=== PATIENT | female | born 1990 | race Caucasian/White ===

== ENCOUNTER 2021-04-25 11:48 | Emergency (ER) | payer OTHER ==
[2021-04-25 12:00] VITALS: TEMP 97.7
[2021-04-25] MEDS ORDERED: LORazepam 2 MG/ML INJ IV STA ×2 (12:07→13:21)
[2021-04-25] MEDS ORDERED: ONDANSETRON 4 MG/2 ML VIAL IVP STA (12:09)
--- NOTE | 2021-04-25 12:15 | ED ---
General Adult HPI - General Source: patient, RN notes reviewed Mode of arrival: wheelchair Limitations: physical limitation <Dwayne Sorto - Last Filed: 04/25/21 16:59> <Sade Miramontes - Last Filed: 04/26/21 23:46> - General Chief complaint: Psychiatric Symptoms Stated complaint: Panic Attack Time Seen by Provider: 04/25/21 11:58 - History of Present Illness Initial comments: 30-year-old female presents to the emergency room for chief complaint of "panic attack." Patient reports she started to have a panic attack around 6:00 this morning. Patient states she has had these several times in the past but they usually last an hour or so. States every time she comes down her panic attack returns. Patient states she is nauseous and is vomiting. Patient's family members also agrees patient has had these several times in the past. He reports she was drinking last night but he did not think she was drinking a lot. He reports that this morning she started to get emotional and that's when she started to have the pack attacks again. Patient reports that she feels short of breath and like her hands and feet are numb. Denies chest pain. Patient has no other complaints at this time including chest pain, abdominal pain, headache, or visual changes. (Dwayne Sorto) - Related Data Home Medications Medication Instructions Recorded Confirmed FLUoxetine HCL [PROzac] 20 mg PO HS 04/25/21 04/25/21 Norethindrone [Ortho Micronor] 0.35 mg PO HS 04/25/21 04/25/21 lamoTRIgine [LaMICtal] 25 mg PO HS 04/25/21 04/25/21 Previous Rx's Medication Instructions Recorded LORazepam [Ativan] 1 mg PO DAILY PRN 3 Days #3 tab 04/25/21 Allergies Allergy/AdvReac Type Severity Reaction Status Date / Time No Known Allergies Allergy Verified 04/25/21 13:59 Review of Systems ROS Other: All systems not noted in ROS Statement are negative. <Dwayne Sorto - Last Filed: 04/25/21 16:59> ROS Other: All systems not noted in ROS Statement are negative. <Sade Miramontes - Last Filed: 04/26/21 23:46> ROS Statement: Those systems with pertinent positive or pertinent negative responses have been documented in the HPI. Past Medical History Past Medical History: No Reported History History of Any Multi-Drug Resistant Organisms: None Reported Past Surgical History: Section Past Psychological History: Anxiety, Bipolar, Depression Smoking Status: Current every day smoker Past Alcohol Use History: Occasional Past Drug Use History: Marijuana <Dwayne Sorto P - Last Filed: 04/25/21 16:59> General Exam Limitations: physical limitation General appearance: alert, anxious Head exam: Present: atraumatic, normocephalic, normal inspection Eye exam: Present: normal appearance, PERRL, EOMI. Absent: scleral icterus, conjunctival injection, periorbital swelling ENT exam: Present: normal exam, normal oropharynx, mucous membranes moist, normal external ear exam Neck exam: Present: normal inspection, full ROM. Absent: tenderness, meningismus, lymphadenopathy Respiratory exam: Present: normal lung sounds bilaterally. Absent: respiratory distress, wheezes, rales, rhonchi, stridor Cardiovascular Exam: Present: regular rate, normal rhythm, normal heart sounds. Absent: systolic murmur, diastolic murmur, rubs, gallop, clicks GI/Abdominal exam: Present: soft, normal bowel sounds. Absent: distended, t enderness, guarding, rebound, rigid Skin exam: Present: diaphoretic <Dwayne Sorto P - Last Filed: 04/25/21 16:59> Course Vital Signs 04/25/21 04/25/21 04/25/21 11:50 12:34 13:28 Temperature 97.7 F Pulse Rate 90 56 L 58 L Respiratory 34 H 20 18 Rate Blood Pressure 134/75 102/52 O2 Sat by Pulse 100 100 100 Oximetry 04/25/21 16:37 Temperature Pulse Rate 80 Respiratory 18 Rate Blood Pressure 118/67 O2 Sat by Pulse 100 Oximetry EKG Findings - EKG Comments: EKG Findings:: Sinus bradycardia, ventricular rate 56, MA interval 114, QTc 490 <Dwayne Sorto P - Last Filed: 04/25/21 16:59> Medical Decision Making - Lab Data Result diagrams: 04/25/21 12:22 04/25/21 12:22 <Dwayne Sorto P - Last Filed: 04/25/21 16:59> - Lab Data Result diagrams: 04/25/21 12:22 04/25/21 12:22 <Sade Miramontes - Last Filed: 04/26/21 23:46> - Medical Decision Making Vitals are stable. Patient is well-appearing. Laboratory evaluation was obtained. Patient does have leukocytosis likely secondary to vomiting. CMP does show low CO2 likely related to hyperventilation. Chest x-ray shows a normal chest. Patient was given fluids, Ativan, and antinausea medication. She started to feel better. I did offer patient to see psychiatry nurse however she declines at this time. She denies suicidal or homicidal thoughts. Patient reports she has seen a psychiatrist outpatient and will follow-up. She is to return here for any worsening symptoms. (Dwayne Sorto) I was available for consultation in the emergency department. The history and physical exam were done by the midlevel provider. I was consulted for this patients care. I reviewed the case with the midlevel provider and based on their presentation of the patient, I agree with the assessment, medical decision making and plan of care as documented. Chart was dictated using [employer] dictation software. Attempts were made to correct any dictation errors however some typographical errors may persist. (Sade Miramontes) - Lab Data Lab Results 04/25/21 04/25/21 Range/Units 12:22 12:22 WBC 17.1 H (3.8-10.6) k/uL RBC 4.73 (3.80-5.40) m/uL Hgb 14.7 (11.4-16.0) gm/dL Hct 44.2 (34.0-46.0) % MCV 93.6 (80.0-100.0) fL MCH 31.1 (25.0-35.0) pg MCHC 33.2 (31.0-37.0) g/dL RDW 13.2 (11.5-15.5) % Plt Count 369 (150-450) k/uL MPV 7.4 Neutrophils % 77 % Lymphocytes % 17 % Monocytes % 4 % Eosinophils % 0 % Basophils % 1 % Neutrophils # 13.1 H (1.3-7.7) k/uL Lymphocytes # 2.9 (1.0-4.8) k/uL Monocytes # 0.7 (0-1.0) k/uL Eosinophils # 0.1 (0-0.7) k/uL Basophils # 0.1 (0-0.2) k/uL Sodium 139 (137-145) mmol/L Potassium 3.7 (3.5-5.1) mmol/L Chloride 107 (98-107) mmol/L Carbon Dioxide 14 L (22-30) mmol/L Anion Gap 18 mmol/L BUN 9 (7-17) mg/dL Creatinine 0.57 (0.52-1.04) mg/dL Est GFR (CKD-EPI)AfAm >90 (>60 ml/min/1.73 sqM) Est GFR (CKD-EPI)NonAf >90 (>60 ml/min/1.73 sqM) Glucose 206 H (74-99) mg/dL Calcium 10.3 H (8.4-10.2) mg/dL Magnesium 1.6 (1.6-2.3) mg/dL Total Bilirubin 0.8 (0.2-1.3) mg/dL AST 27 (14-36) U/L ALT 23 (4-34) U/L Alkaline Phosphatase 89 (38-126) U/L Total Protein 7.4 (6.3-8.2) g/dL Albumin 4.9 (3.5-5.0) g/dL Serum Alcohol <10 mg/dL Disposition Is patient prescribed a controlled substance at d/c from ED?: No Time of Disposition: 16:51 <Dwayne Sorto P - Last Filed: 04/25/21 16:59> <Sade Miramontes A - Last Filed: 04/26/21 23:46> Clinical Impression: Acute anxiety Disposition: HOME SELF-CARE Condition: Good Instructions (If sedation given, give patient instructions): Anxiety (ED) Additional Instructions: Take Ativan as needed. Do not drive while taking Ativan. Please follow up with primary care. Return to the emergency room for any worsening symptoms. Prescriptions: LORazepam [Ativan] 1 mg PO DAILY PRN 3 Days #3 tab PRN Reason: Anxiety Referrals: Srikanth Harrison MD [REFERRING] - 1-2 days
[2021-04-25 12:50] LABS: Basophils # (A) 0.1 k/uL (0-0.2); Basophils % (A) 1 %; Eosinophils # (A) 0.1 k/uL (0-0.7); Eosinophils % (A) 0 %; HCT 44.2 % (34.0-46.0); HGB 14.7 gm/dL (11.4-16.0); Lymphocytes # (A) 2.9 k/uL (1.0-4.8); Lymphocytes % (A) 17 %; MCH 31.1 pg (25.0-35.0); MCHC 33.2 g/dL (31.0-37.0); MCV 93.6 fL (80.0-100.0); Mean Platelet Volume 7.4; Monocytes # (A) 0.7 k/uL (0-1.0); Monocytes % (A) 4 %; Neutrophils # (A) 13.1 k/uL (1.3-7.7); Neutrophils % (A) 77 %; Platelet Count 369 k/uL (150-450); RBC 4.73 m/uL (3.80-5.40); RDW 13.2 % (11.5-15.5); WBC 17.1 k/uL (3.8-10.6)
[2021-04-25 12:58] LABS: AST 27 U/L (14-36); African American GFR (CKD) >90 (>60 ml/min/1.73 sqM); Albumin 4.9 g/dL (3.5-5.0); Alcohol <10 mg/dL; Alkaline Phosphatase 89 U/L (38-126); Anion Gap 18 mmol/L; Blood Urea Nitrogen 9 mg/dL (7-17); Calcium 10.3 mg/dL (8.4-10.2); Carbon Dioxide 14 mmol/L (22-30); Chloride 107 mmol/L (98-107); Glucose 206 mg/dL (74-99); Magnesium 1.6 mg/dL (1.6-2.3); Non-African American GFR(CKD) >90 (>60 ml/min/1.73 sqM); Potassium 3.7 mmol/L (3.5-5.1); Sodium 139 mmol/L (137-145); Total Bilirubin 0.8 mg/dL (0.2-1.3); Total Protein 7.4 g/dL (6.3-8.2)
[2021-04-25 13:19] LABS: ALT 23 U/L (4-34)
[2021-04-25 13:28] VITALS: RESP 18
--- NOTE | 2021-04-25 15:02 | XR ---
EXAMINATION TYPE: XR chest 2V DATE OF EXAM: 04/25/2021 COMPARISON: NONE HISTORY: Short of breath TECHNIQUE: FINDINGS: Heart and mediastinum are normal. Lungs are clear. Diaphragm is normal. Bony thorax appears normal. IMPRESSION: Normal chest. Normal heart.
[2021-04-25] MEDS ORDERED: diphenhydrAMINE 50 MG/ML 1 ML VIAL IVP STA (15:58)
[2021-04-25] MEDS ORDERED: SODIUM CHLORIDE 0.9% 1,000 ML IV STA (15:58)
[2021-04-25] MEDS ORDERED: METOCLOPRAMIDE 5 MG/ML 2 ML VIAL IVP STA (15:58)
[2021-04-25 16:38] VITALS: BP 118/67; PULSE 80
== END 2021-04-25 17:14 | disposition home or self-care (01) ==
LOC: EC 11:48
DX: F41.9 Anxiety disorder, unspecified (principal); D72.829 Elevated white blood cell count, unspecified; F17.200 Nicotine dependence, unspecified, uncomplicated
CPT/HCPCS: 36415; 93005; 80053; 83735; 85025; 71046; 99285; 96374; 96375; 96376; 96361; G0480; J2060; J1200; J2765; J2405; 80320

== ENCOUNTER 2021-07-05 18:15 | Inpatient (IN) | payer MEDICAID, OTHER ==
--- NOTE | 2021-07-05 19:54 | ED ---
Psych HPI - General Chief Complaint: Psychiatric Symptoms Stated Complaint: EPS eval Time Seen by Provider: 07/05/21 18:28 Source: patient Mode of arrival: ambulatory - History of Present Illness Initial Comments: Patient presents with psychiatric disorder. She has thoughts of harming herself. She did not overdose or try to harm her self today. He has no chest or belly or back pain. She has no nausea or vomiting. She has no weakness. She has no lightheadedness. - Related Data Home Medications Medication Instructions Recorded Confirmed FLUoxetine HCL [PROzac] 20 mg PO HS 04/25/21 04/25/21 Norethindrone [Ortho Micronor] 0.35 mg PO HS 04/25/21 04/25/21 lamoTRIgine [LaMICtal] 25 mg PO HS 04/25/21 04/25/21 Previous Rx's Medication Instructions Recorded LORazepam [Ativan] 1 mg PO DAILY PRN 3 Days #3 tab 04/25/21 Allergies Allergy/AdvReac Type Severity Reaction Status Date / Time No Known Allergies Allergy Verified 07/05/21 18:27 Review of Systems ROS Statement: Those systems with pertinent positive or pertinent negative responses have been documented in the HPI. ROS Other: All systems not noted in ROS Statement are negative. Past Medical History Past Medical History: No Reported History History of Any Multi-Drug Resistant Organisms: None Reported Past Surgical History: Section Past Psychological History: Anxiety, Bipolar, Depression Smoking Status: Current every day smoker Past Alcohol Use History: Occasional Past Drug Use History: Marijuana General Exam Limitations: no limitations General appearance: alert, in no apparent distress Head exam: Present: atraumatic, normocephalic, normal inspection Eye exam: Present: normal appearance, PERRL, EOMI. Absent: scleral icterus, conjunctival injection, periorbital swelling ENT exam: Present: normal exam, mucous membranes moist Neck exam: Present: normal inspection. Absent: tenderness, meningismus, lymphadenopathy Respiratory exam: Present: normal lung sounds bilaterally. Absent: respiratory distress, wheezes, rales, rhonchi, stridor Cardiovascular Exam: Present: regular rate, normal rhythm, normal heart sounds. Absent: systolic murmur, diastolic murmur, rubs, gallop, clicks GI/Abdominal exam: Present: soft, normal bowel sounds. Absent: distended, tenderness, guarding, rebound, rigid Extremities exam: Present: normal inspection, full ROM, normal capillary refill. Absent: tenderness, pedal edema, joint swelling, calf tenderness Back exam: Present: normal inspection Neurological exam: Present: alert, oriented X3, CN II-XII intact Psychiatric exam: Present: depressed Skin exam: Present: warm, dry, intact, normal color. Absent: rash Course Vital Signs 07/05/21 18:23 Temperature 98.1 F Pulse Rate 102 H Respiratory 18 Rate Blood Pressure 110/79 O2 Sat by Pulse 98 Oximetry Medical Decision Making - Medical Decision Making Patient was a valid by psychiatry. She will be admitted to their service. Disposition Clinical Impression: Depression Disposition: TRANSFER TO PSYCH HOSP/UNIT Condition: Fair Referrals: Holly Patel MD [Primary Care Provider] - 1-2 days
[2021-07-05] MEDS ORDERED: ACETAMINOPHEN TAB 325 MG TAB PO PRN (20:43)
[2021-07-05] MEDS ORDERED: MAGNESIUM HYDROXIDE 2,400 MG/10 ML CUP PO PRN (20:43)
[2021-07-05] MEDS ORDERED: MAG HYDROX/AL HYDROX/SIMETH 30 ML CUP PO PRN (20:43)
[2021-07-05] MEDS ORDERED: HALOPERIDOL LACTATE 5 MG/ML 1 ML VIAL IM PRN (20:49)
[2021-07-05] MEDS ORDERED: LORazepam 2 MG/ML INJ IM PRN (20:49)
[2021-07-05] MEDS: LORazepam 1 MG TAB PO PRN (21:16)
[2021-07-05 21:52] VITALS: RESP 16
--- NOTE | 2021-07-06 03:17 | P.PN ---
Progress Note - Text Progress Note Date: 07/06/21 Patient sedated and could not be evaluated.
[2021-07-06] MEDS ORDERED: NICOTINE 14MG/24HR PATCH TRANSDERM SCH (09:00)
[2021-07-06 10:23] LABS: Basophils % (A) 0 %; Eosinophils # (A) 0.1 k/uL (0-0.7); Eosinophils % (A) 1 %; HCT 44.6 % (34.0-46.0); HGB 14.4 gm/dL (11.4-16.0); Lymphocytes # (A) 1.8 k/uL (1.0-4.8); Lymphocytes % (A) 16 %; MCH 31.6 pg (25.0-35.0); MCHC 32.3 g/dL (31.0-37.0); MCV 97.8 fL (80.0-100.0); Mean Platelet Volume 6.9; Monocytes # (A) 0.4 k/uL (0-1.0); Monocytes % (A) 4 %; Neutrophils % (A) 79 %; Platelet Count 322 k/uL (150-450); RBC 4.56 m/uL (3.80-5.40); RDW 12.1 % (11.5-15.5); WBC 11.4 k/uL (3.8-10.6)
[2021-07-06 10:32] LABS: ALT 19 U/L (4-34); AST 28 U/L (14-36); African American GFR (CKD) >90 (>60 ml/min/1.73 sqM); Albumin 4.5 g/dL (3.5-5.0); Alkaline Phosphatase 80 U/L (38-126); Anion Gap 11 mmol/L; Blood Urea Nitrogen 14 mg/dL (7-17); Carbon Dioxide 25 mmol/L (22-30); Chloride 103 mmol/L (98-107); Glucose 106 mg/dL (74-99); Non-African American GFR(CKD) >90 (>60 ml/min/1.73 sqM); Potassium 3.7 mmol/L (3.5-5.1); Sodium 139 mmol/L (137-145); Total Bilirubin 0.7 mg/dL (0.2-1.3); Total Protein 7.3 g/dL (6.3-8.2)
[2021-07-06] MEDS: LORazepam 1 MG TAB PO PRN (11:06)
[2021-07-06] MEDS: VENLAFAXINE HCL ER 37.5 MG CAP PO SCH (12:25)
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
[2021-07-06 17:05] LABS: Hemoglobin A1C 4.9 % (4.0-6.0)
--- NOTE | 2021-07-06 18:12 | P.CONS ---
History of Present Illness - Reason for Consult Consult date: 07/06/21 Medical management Requesting physician: Prakash Dick - Chief Complaint Depressed - History of Present Illness Consultation: This is a 31-year-old patient follows with Dr. Patel. Patient with having progressive symptoms of anxiety depression. She got into a argument with her boyfriend is started crying. She took a knife to her throat but then decided against the same. She has not been eating well and poor sleep. Patient does smoke marijuana and smokes cigarettes. 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 She therefore decided to present here. He sees patient has been anxious depressed for quite some time. Patient also c omplaining of a runny nose,itchy throat some wheezing and a cough. Patient denies any fever and chills. Review of systems: GEN.: None EYES: None HEENT: As above] NECK: None RESPIRATORY: As above CARDIOVASCULAR: None GASTROINTESTINAL: None GENITOURINARY: None MUSCULOSKELETAL: None LYMPHATICS: None HEMATOLOGICAL: None PSYCHIATRY: As above NEUROLOGICAL: Not sleeping well Past medical history to include: Anxiety depression Social history: Lives with her boyfriend and daughter. Smokes anywhere from a 1 g to quarter ounce of marijuana daily. Smokes 1 packet cigarettes a day since age of 14. 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 Family history: Reviewed, noncontributory to presentation Physical examination: VITAL SIGNS:, 98.1, 82, 16, 118/68, 97% on room air GENERAL: BMI 23.6, sitting up in a chair, awake, slightly anxious. EYES: Pupils equal. Conjunctiva normal. HEENT: External appearance of nose and ears normal, oral cavity grossly normal. NECK: JVD not raised; masses not palpable. HEART: First and second heart sounds are normal; no edema. LUNGS: Respiratory rate normal; decreased breath sounds or wheezing. ABDOMEN: Soft, nontender, liver spleen not palpable, no masses palpable. PSYCH: Alert and oriented x3; mood and affect normal. NEUROLOGICAL: Cranial nerves grossly intact; no facial asymmetry, power and sensation grossly intact. LYMPHATICS: No lymph nodes palpable in the axilla and neck INVESTIGATIONS, reviewed in the clinical context: White count 11.4 hemoglobin 14.4 platelets 322 potassium 3.7 crit 0.67 TSH 0.921 Assessment and plan: -Acute viral bronchitis with secondary bronchospasm Claritin 5 mg twice a day for 4 doses and albuterol 2 puffs 4 times a day -Chronic nicotine dependence, cigarette smoker Patient was counseled. Nicotine patch 21 g -Chronic marijuana use, recreational Advised against the same -Chronic insomnia from anxiety depression Patient be started on trazodone -Major depressive disorder recurrent, severe and anxiety disorder Follow-up with psychiatry Care was discussed with the patient. To follow-up with her family doctor upon discharge. Medication changes as above. Thank you Dr. Dick Past Medical History Past Medical History: No Reported History History of Any Multi-Drug Resistant Organisms: None Reported Past Surgical History: Section Smoking Status: Current every day smoker Medications and Allergies Home Medications Medication Instructions Recorded Confirmed Type FLUoxetine HCL [PROzac] 20 mg PO HS 04/25/21 04/25/21 History LORazepam [Ativan] 1 mg PO DAILY PRN 3 Days #3 tab 04/25/21 Rx Norethindrone [Ortho Micronor] 0.35 mg PO HS 04/25/21 04/25/21 History lamoTRIgine [LaMICtal] 25 mg PO HS 04/25/21 04/25/21 History Allergies Allergy/AdvReac Type Severity Reaction Status Date / Time No Known Allergies Allergy Verified 07/05/21 18:27 Physical Exam Vitals: Vital Signs Temp Pulse Pulse Resp BP BP Pulse Ox 07/05/21 21:49 98.1 F 82 16 118/68 97 07/05/21 18:23 98.1 F 102 H 18 110/79 98 Intake and Output 07/05/21 07/06/21 07/06/21 22:59 06:59 14:59 Other: Weight 60.441 kg Results CBC & Chem 7: 07/06/21 09:33 07/06/21 09:33
[2021-07-06] MEDS: NICOTINE 21MG/24HR PATCH TRANSDERM SCH (18:14)
[2021-07-06 18:59] LABS: Chol/HDL Ratio 2.93; Cholesterol 158 mg/dL (0-200); LDL Cholesterol,Calculated 87.6 mg/dL (0.0-131.0)
[2021-07-06] MEDS: traZODone HCL 50 MG TAB PO SCH (20:10)
[2021-07-06] MEDS: LORATADINE 10 MG TAB PO SCH (20:10)
[2021-07-06] MEDS: ALBUTEROL HFA INHALER INHALATION SCH (20:12)
[2021-07-07 06:52] VITALS: BP 113/66; PULSE 85; TEMP 97.6
[2021-07-07] MEDS: LORATADINE 10 MG TAB PO SCH ×2 (08:20→22:14)
[2021-07-07] MEDS: ALBUTEROL HFA INHALER INHALATION SCH ×4 (08:20→22:15)
[2021-07-07] MEDS: VENLAFAXINE HCL ER 37.5 MG CAP PO SCH (08:20)
[2021-07-07] MEDS: NICOTINE 21MG/24HR PATCH TRANSDERM SCH (08:21)
--- NOTE | 2021-07-07 09:20 | P.PN ---
Progress Note - Text Progress Note Date: 07/07/21 Interval History: Patient was seen wandering the hallways and was directable and agreeable to sp jessica with aligner typewriter in the office. Patient appears to be mildly less tearful today and have an improvement in her affect. She states that she is not feeling suicidal today and states that she feels that it was "childish" she was feeling that way yesterday and was tearful. She states that she had a difficult time sleeping due to another patient running in the hallways and yelling. She states that she feels the trazodone has been helping though and wants to remain on the same dose. She claims that she feels the Effexor has been helping her and wants to have that increased. She claims that she is going to groups and attempting to participate as best that she can. At this time patient denies any suicidal or homical ideations, intent or plan. Patient denies any auditory, visual hallucinations and denies any paranoia or delusions. Patient denies any side effects from the medications and has been compliant with meds. Mental Status Exam: General Appearance: Patient appears to be short in stature, stated age is alert, directable, and attempts to cooperate. Patient appears to have improving hygiene and grooming. Behavior: Patient is seated without any agitated behavior. Speech: Patient's speech is fluent and nonpressured. Soft tone Mood/Affect: Patient reports their mood is improving mildly, affect is congruent Suicidality/Homicidality: Patient denies having any homicidal ideation intent or plan. She claims that she is having no suicidal thoughts today, no intent or plan. Perceptions: Patient denies any visual hallucinations and denies any auditory hallucinations Though content/process: Logical. Focused on her stressors and her symptoms. Memory and concentration: AOX3, grossly intact for the purposes of this session. Judgment and insight: Improving Assessment Major depressive disorder, recurrent, severe Anxiety disorder unspecified, rule out panic disorder versus generalized anxiety disorder Cannabis use disorder Nicotine dependence Plan: -Patient continues to meet criteria for inpatient psychiatric admission for symptom stabilization and safety. Patient has signed adult voluntary form and medication consent and was placed in patient's chart. -Medications: Increased Effexor to 75 mg daily for mood/anxiety. Continue trazodone 50 mg daily at bedtime for insomnia/mood. -When necessary Ativan and Haldol for agitation/aggression. -NRT - nicotine patch -SW on board for discharge planning. Encouraged the patient to participate in milieu. likely discharge tomorrow if patient continues to improve.
[2021-07-07] MEDS: traZODone HCL 50 MG TAB PO SCH (22:14)
[2021-07-07] MEDS: LORazepam 1 MG TAB PO PRN (23:07)
[2021-07-08] MEDS: NICOTINE 21MG/24HR PATCH TRANSDERM SCH (08:40)
[2021-07-08] MEDS: LORATADINE 10 MG TAB PO SCH (08:40)
[2021-07-08] MEDS: ALBUTEROL HFA INHALER INHALATION SCH ×3 (08:40→15:51)
[2021-07-08] MEDS ORDERED: VENLAFAXINE HCL ER 75 MG CAP PO SCH (09:00)
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
== END 2021-07-08 19:58 | disposition home or self-care (01) | DRG 885 ==
LOC: EC 18:15 → 3MHU 20:41
PROVIDERS: ADMIT Psychiatry & Neurology Psychiatry; ATTEND Psychiatry & Neurology Psychiatry
DX: F33.2 Major depressive disorder, recurrent severe without psychotic features (principal); R45.851 Suicidal ideations; F12.10 Cannabis abuse, uncomplicated; F17.210 Nicotine dependence, cigarettes, uncomplicated; F41.0 Panic disorder [episodic paroxysmal anxiety]; F41.8 Other specified anxiety disorders; F51.04 Psychophysiologic insomnia; F51.05 Insomnia due to other mental disorder; J20.9 Acute bronchitis, unspecified; Z79.899 Other long term (current) drug therapy; Z81.1 Family history of alcohol abuse and dependence
CPT/HCPCS: 80053; 80061; 82075; 83036; 84443; 85025; 99285

== ENCOUNTER 2021-08-22 03:55 | Inpatient (IN) | payer MEDICAID, OTHER ==
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
[2021-08-22 06:43] LABS: Basophils % (A) 1 %; Eosinophils # (A) 0.1 k/uL (0-0.7); Eosinophils % (A) 1 %; HCT 40.2 % (34.0-46.0); HGB 13.2 gm/dL (11.4-16.0); Lymphocytes # (A) 1.9 k/uL (1.0-4.8); Lymphocytes % (A) 31 %; MCH 31.9 pg (25.0-35.0); MCHC 32.8 g/dL (31.0-37.0); MCV 97.1 fL (80.0-100.0); Mean Platelet Volume 7.1; Monocytes # (A) 0.4 k/uL (0-1.0); Monocytes % (A) 6 %; Neutrophils # (A) 3.8 k/uL (1.3-7.7); Neutrophils % (A) 60 %; Platelet Count 248 k/uL (150-450); RBC 4.14 m/uL (3.80-5.40); RDW 11.9 % (11.5-15.5); WBC 6.4 k/uL (3.8-10.6)
[2021-08-22 06:59] LABS: Appearance,Urine Clear (Clear); Bilirubin,Urine Negative (Negative); Blood,Urine Negative (Negative); Color,Urine Colorless; Glucose,Urine (UA) Negative (Negative); Ketones,Urine Negative (Negative); Leukocyte Esterase,Urine Negative (Negative); Nitrite,Urine Negative (Negative); PH, Urine 5.5 (5.0-8.0); Protein,Urine Negative (Negative); Specific Gravity,Urine 1.003 (1.001-1.035); Urobilinogen,Urine <2.0 mg/dL (<2.0)
[2021-08-22] MEDS ORDERED: MAGNESIUM HYDROXIDE 2,400 MG/10 ML CUP PO PRN (07:05)
[2021-08-22] MEDS ORDERED: MAG HYDROX/AL HYDROX/SIMETH 30 ML CUP PO PRN (07:05)
[2021-08-22] MEDS ORDERED: ACETAMINOPHEN TAB 325 MG TAB PO PRN (07:05)
[2021-08-22] MEDS ORDERED: LORazepam 1 MG TAB PO PRN (07:05)
[2021-08-22 07:12] LABS: Acetaminophen <10.0 ug/mL; African American GFR (CKD) >90 (>60 ml/min/1.73 sqM); Anion Gap 5 mmol/L; Blood Urea Nitrogen 8 mg/dL (7-17); Carbon Dioxide 25 mmol/L (22-30); Chloride 110 mmol/L (98-107); Glucose 127 mg/dL (74-99); Non-African American GFR(CKD) >90 (>60 ml/min/1.73 sqM); Potassium 4.3 mmol/L (3.5-5.1); Salicylate <1.0 mg/dL; Sodium 140 mmol/L (137-145)
[2021-08-22 07:38] LABS: Amphetamine Screen,Urine Detected (NotDetected); Barbiturate Screen,Urine Not Detected (NotDetected); Benzodiazepines Screen,Urine Not Detected (NotDetected); Cocaine Screen,Urine Not Detected (NotDetected); Methadone Screen, Urine Not Detected (NotDetected); Opiate Screen,Urine Not Detected (NotDetected); Oxycodone Screen, Urine Not Detected (NotDetected); Phencyclidine Screen,Urine Not Detected (NotDetected); Tricyclic Antidepressant,Urine Not Detected (NotDetected); Urn Cannabinoid Scrn Detected (NotDetected)
[2021-08-22] MEDS ORDERED: ALBUTEROL INHALER 60 PUFF/8 GM INHALER (MHU) INHALATION SCH (08:00)
[2021-08-22] MEDS: NICOTINE 14MG/24HR PATCH TRANSDERM SCH (10:02)
[2021-08-22] MEDS: LORATADINE 10 MG TAB PO SCH ×2 (10:02→20:33)
[2021-08-22] MEDS ORDERED: ALBUTEROL INHALER 60 PUFF/8 GM INHALER (MHU) INHALATION PRN (10:41)
[2021-08-22] MEDS: OLANZapine 5 MG TAB PO SCH ×3 (14:08→20:34)
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
--- NOTE | 2021-08-22 14:27 | P.CONS ---
History of Present Illness - Reason for Consult Consult date: 08/22/21 Medical management Requesting physician: Karl Llanos - Chief Complaint Very emotional - History of Present Illness Consultation: This is a 31-year-old patient follows with Dr. Patel. Patient was here in the hospital from August 04 through August 07. Diagnosed with major depressive disorder without psychotic symptoms. Patient does use marijuana and smoking cigarettes. Patient became into the ER when she was very emotionally distraught. She tried to jump out of for [employer] car. She was reportedly shouting and yelling in the ER. Feeling depressed and suicidal. Since the presentation in July patient is being through 2 jobs. Cannot deal with the people in the [employer] day. She was to apply for disability. Patient been having trouble sleeping. Appetite is fair. More contained during the interview. Review of systems: GEN.: None EYES: None HEENT: None NECK: None RESPIRATORY: None CARDIOVASCULAR: None GASTROINTESTINAL: None GENITOURINARY: None MUSCULOSKELETAL: None LYMPHATICS: None HEMATOLOGICAL: None PSYCHIATRY: As above NEUROLOGICAL: Not sleeping well Past medical history to include: Major depressive disorder. Anxiety disorder. Nicotine and marijuana use. Social history: Lives with her boyfriend and daughter. Smokes anywhere from a 1 g to quarter ounce of marijuana daily. Smokes 1 packet cigarettes a day since age of 14. Currently not employed. Family history: Reviewed, noncontributory to presentation Physical examination: VITAL SIGNS:, 97.9, 92, 18, 111/62, 99% room air GENERAL: BMI 24.3, sitting up in a chair, appears slightly anxious. EYES: Pupils equal. Conjunctiva normal. HEENT: External appearance of nose and ears normal, oral cavity grossly normal. NECK: JVD not raised; masses not palpable. HEART: First and second heart sounds are normal; no edema. LUNGS: Respiratory rate normal; decreased breath sounds or wheezing. ABDOMEN: Soft, nontender, liver spleen not palpable, no masses palpable. PSYCH: Alert and oriented x3; mood and affect anxious. NEUROLOGICAL: Cranial nerves grossly intact; no facial asymmetry, power and sensation grossly intact. LYMPHATICS: No lymph nodes palpable in the axilla and neck INVESTIGATIONS, reviewed in the clinical context: White count 6.4 hemoglobin 13.2 platelets 248 potassium 4.3 creatinine 0.5 to UA: Negative Units she quantitative: Not detected Urine drug screen positive for amphetamines, marijuana Coronavirus [PCR]: Not detected Assessment and plan: -Major depressive disorder with acute flareup. Without psychotic symptoms Follow with psychiatry -Chronic nicotine dependence, cigarette smoker counseled. Nicotine patch 21 g -Chronic marijuana use, recreational Advised against the same -Intermittent vaping counselled -Chronic insomnia from anxiety depression Patient on Zyprexa Care was discussed with the patient. Counseled about lifestyle changes. Also discussed about mindfulness. Thank you Dr. Llanos Past Medical History Past Medical History: No Reported History History of Any Multi-Drug Resistant Organisms: None Reported Past Surgical History: Section Past Anesthesia/Blood Transfusion Reactions: No Reported Reaction Past Psychological History: Anxiety, Bipolar, Depression Smoking Status: Current every day smoker Past Alcohol Use History: Occasional Past Drug Use History: Marijuana Medications and Allergies Home Medications Medication Instructions Recorded Confirmed Type Norethindrone [Ortho Micronor] 0.35 mg PO HS 04/25/21 08/22/21 History Allergies Allergy/AdvReac Type Severity Reaction Status Date / Time No Known Allergies Allergy Verified 08/22/21 10:29 Physical Exam Vitals: Vital Signs Temp Pulse Pulse Resp BP BP Pulse Ox 08/22/21 08:40 97.9 F 92 18 111/62 08/22/21 05:03 73 16 109/70 99 08/22/21 03:58 97.6 F 147 H 28 H 143/94 100 Intake and Output 08/21/21 08/22/21 08/22/21 22:59 06:59 14:59 Other: Weight 62.3 kg 62.3 kg Results CBC & Chem 7: 08/22/21 06:38 08/22/21 06:38 Labs: Abnormal Lab Results - Last 24 Hours (Table) 08/22/21 08/22/21 Range/Units 06:38 06:47 Chloride 110 H (98-107) mmol/L Glucose 127 H (74-99) mg/dL Ur Amphetamines Screen Detected H (NotDetected) U Marijuana (THC) Screen Detected H (NotDetected)
[2021-08-22] MEDS: NORETHINDRONE 0.35 MG PO SCH (20:32)
[2021-08-23] MEDS: OLANZapine 5 MG TAB PO SCH ×3 (09:19→20:33)
[2021-08-23] MEDS: LORATADINE 10 MG TAB PO SCH ×2 (10:02→20:33)
[2021-08-23] MEDS: NICOTINE 14MG/24HR PATCH TRANSDERM SCH (10:02)
[2021-08-23 11:56] LABS: Basophils # (A) 0.1 k/uL (0-0.2); Basophils % (A) 1 %; Eosinophils # (A) 0.1 k/uL (0-0.7); Eosinophils % (A) 2 %; HCT 42.3 % (34.0-46.0); HGB 14.3 gm/dL (11.4-16.0); Lymphocytes % (A) 29 %; MCH 32.6 pg (25.0-35.0); MCHC 33.7 g/dL (31.0-37.0); MCV 96.5 fL (80.0-100.0); Mean Platelet Volume 7.3; Monocytes # (A) 0.4 k/uL (0-1.0); Monocytes % (A) 6 %; Neutrophils # (A) 4.1 k/uL (1.3-7.7); Neutrophils % (A) 60 %; Platelet Count 286 k/uL (150-450); RBC 4.38 m/uL (3.80-5.40); RDW 12.6 % (11.5-15.5); WBC 6.8 k/uL (3.8-10.6)
[2021-08-23 12:01] LABS: ALT 18 U/L (4-34); AST 23 U/L (14-36); African American GFR (CKD) >90 (>60 ml/min/1.73 sqM); Alkaline Phosphatase 53 U/L (38-126); Anion Gap 7 mmol/L; Blood Urea Nitrogen 15 mg/dL (7-17); Calcium 9.5 mg/dL (8.4-10.2); Carbon Dioxide 25 mmol/L (22-30); Chloride 105 mmol/L (98-107); Glucose 91 mg/dL (74-99); Non-African American GFR(CKD) >90 (>60 ml/min/1.73 sqM); Potassium 4.6 mmol/L (3.5-5.1); Sodium 137 mmol/L (137-145); Total Bilirubin 0.4 mg/dL (0.2-1.3); Total Protein 6.7 g/dL (6.3-8.2)
--- NOTE | 2021-08-23 17:35 | PN ---
PROGRESS NOTE DATE OF SERVICE: 08/23/2021. CHIEF COMPLAINT: The patient was highly distressed and depressed. She had thoughts of jumping out of a moving car. She has significant substance use issues. INTERVAL HISTORY: The patient has been doing fair. She had a quiet day yesterday. She comes out on the unit. She tends to have a quiet manner, though she does interact with others. She attended one group yesterday. She said she slept fairly well. Today she has been up. Overall, things have been about the same for her. She says that she gets some tiredness after she takes her medications. She also notes that she feels she has some contradicting symptoms, in that she will feel some jitteriness and tiredness at the same time. She wonders if that mostly relates to her withdrawal issues. She said that she has been processing issues that she has been dealing with and thinks the best option for her would be to go to an inpatient substance abuse rehab program and from there look at alternative living situations. She notes that her boyfriend drinks and uses drugs, and she is quite convinced that if she returns to that living situation, she will be right back into substance use herself. She acknowledges that the substance use problems have been a significant issue for her for a long period of time. She notes that she started smoking marijuana in early teens because it was the most available thing for her. She has been using it ever since. She notes that with her boyfriend, the two of them frequently have conflicts. She says that her family lives in [place] and there is at least one option that she could live with her family, though she sees that as not a good option either because of a lot of problems with her family, including substance abuse issues. She said her mood has improved since she has been on the unit, though she says that if she were to go home now, she is very clear that she would likely get right back into suicidal thinking and would not be able to handle the home situation. She continues to note a lot of negative self-image where she blames herself for most anything negative. She acknowledges she has much difficulty in seeing anything positive about herself. For the most part she appears to tolerate her psychotropic medication, namely Zyprexa. MENTAL STATUS EXAM: Patient sat with a little restlessness. She gave fair eye contact. She answered questions appropriately. Her thoughts were clear and coherent. She was not too spontaneous, though she was somewhat interactive. Her affect was anxious, her mood depressed. She was significantly distressed. There was no indication of thought disorder. She has thoughts of self-harm though says she feels safe on the unit. She is oriented and alert. ASSESSMENT: I will continue with the current diagnosis and treatment plan. I will continue psychotropic medications the same. We had an extensive discussion in regard to withdrawal issues and expectations over the next several weeks as to what she may anticipate in withdrawal and how she can manage these issues. I encouraged her to think about the substance abuse program. She intends to make calls tomorrow morning to see about bed availability. We discussed some physical activity programs to help manage early substance withdrawal. I gave her handouts on non-medicine interventions. We will focus on stabilization and discharge planning. SARAH / MICHAEL: [id number] /
[2021-08-23 17:59] LABS: Chol/HDL Ratio 3.16 Ratio; LDL Cholesterol,Calculated 90.4 mg/dL (0.0-131.0)
[2021-08-23] MEDS: NORETHINDRONE 0.35 MG PO SCH (20:34)
[2021-08-24] MEDS: LORATADINE 10 MG TAB PO SCH ×2 (08:03→21:02)
[2021-08-24] MEDS: NICOTINE 14MG/24HR PATCH TRANSDERM SCH (08:04)
[2021-08-24] MEDS: OLANZapine 5 MG TAB PO SCH ×3 (08:05→21:02)
[2021-08-24] MEDS ORDERED: LORazepam 2 MG/ML INJ IM PRN (17:34)
[2021-08-24] MEDS ORDERED: LORazepam 1 MG TAB PO PRN (17:34)
--- NOTE | 2021-08-24 17:44 | PN ---
PROGRESS NOTE DATE OF SERVICE: 08/24/2021. CHIEF COMPLAINT: The patient was highly distressed and depressed. She had thoughts of jumping out of a moving car. She has significant substance use issues. INTERVAL HISTORY: The patient has been doing fair. She had a quiet day yesterday. She comes out on the unit. She interacts appropriately with staff and peers. She has been cooperative with care. She attended groups yesterday and seemed to engage well in the groups. She continues to talk about the option she has for a living situation on discharge. She would consider an inpatient substance abuse treatment program or possibly a prison. She slept fairly well last night. Today, she has been up. She has attended groups today. She feels that medications have been helpful. She has a somewhat better outlook. She continues to be understanding of issues with substance withdrawal. She notes that her mood has improved at least to some extent. She tolerates psychotropic medications. MENTAL STATUS: Patient sat without restlessness. She gave fairly good eye contact. She answered questions with direct responses. Her thoughts were clear. Her affect was somewhat constricted. Her mood depressed. She was somewhat distressed. There was no indication of thought disorder. She voiced no thoughts of harm. She was oriented and alert. ASSESSMENT: I will continue the current diagnosis and treatment plan. I will continue psychotropic medications the same. I again reviewed issues relating to substance withdrawal both relating to her alcohol and marijuana use. Her urine drug screen was positive for amphetamines, though she indicated no use of amphetamines. We continue to focus on placement issues as one of the steps towards working on a discharge plan. We will focus on stabilization and discharge planning. SARAH / MICHAEL: [id number] / [facility]#: [id number]
[2021-08-24] MEDS: NORETHINDRONE 0.35 MG PO SCH (21:03)
[2021-08-25] MEDS: NICOTINE 14MG/24HR PATCH TRANSDERM SCH (09:14)
[2021-08-25] MEDS: OLANZapine 5 MG TAB PO SCH ×3 (09:15→20:20)
[2021-08-25] MEDS: LORATADINE 10 MG TAB PO SCH ×2 (09:15→20:18)
--- NOTE | 2021-08-25 16:15 | PN ---
PROGRESS NOTE DATE OF SERVICE: 08/25/2021. CHIEF COMPLAINT: The patient was highly distressed and depressed. She had thoughts of jumping out of a moving car. She has significant substance use issues. INTERVAL HISTORY: The patient has been doing fair. Overall she seems to be making reasonable progress. She had a quiet day yesterday. For the most part, she attends groups. She interacts with others. She had a difficult situation in the evening. Nursing staff documented the following at 1732 hours: "Patient presented to [facility] with extreme anxiety. Patient is shaking and crying. Patient spoke on phone with significant other who told her 'you aren't going to get better' and that going to rehab is 'a really bad idea. Binge drinking and marijuana are not a problem.' Patient is visibly shaking and upset. "He said that they are going to do nothing for you there. They don't know you. He told me to come home right now and I know I can't. I am so afraid. What if I can't get better?' Patient crying uncontrollably; 'I have been listening to him for so long I just can't ignore him.' Patient reports her suicidal thoughts are increasing. However, she does not want to kill herself at this time. P.r.n. Ativan was administered." The patient said that the Ativan helped her quiet down. She slept fairly well last night. Today she has been up. We reviewed her situation yesterday. She acknowledges that she struggles a lot with not being able to make decisions for herself or feel secure about her own thinking. She says this has been a long-term issue. She believes that she needs to be away from her boyfriend in order to better control her emotions and think through issues she needs to deal with. She stated that she is willing to go to a women's prison. One option is a prison where she could live longer-term, get support in the home and also be able to get out in the community to go to work. She has made a call to a facility and is waiting on further information. The patient stated she would be willing to go to the [facility] in the short term until a bed became available in a longer-term program. Overall, patient said she has been doing fairly well in terms of managing withdrawal. She feels that her medications have been helpful. She acknowledges that she continues to need therapy to help address some of her struggles she has with self-esteem and uncertainties about herself. She describes a very negative attitude about herself. She tolerates her psychotropic medications. MENTAL STATUS: Patient gave fairly good eye contact. She answered questions appropriately. Her thoughts were clear and coherent. She was spontaneous and interactive. Her affect was in the reasonable range. Her mood was somewhat down, though not clearly depressed. She seemed somewhat distressed, though not to a significant degree. There was no indication of thought disorder. She denied thoughts of harm. Cognition was clear. ASSESSMENT: I will continue the current diagnosis and treatment plan. I will continue psychotropic medications the same. The patient will be making further contacts with shelters and feels that she will be ready to be discharged in the next day or so when a prison becomes available. SARAH / MICHAEL: [id number] /
[2021-08-25] MEDS: NORETHINDRONE 0.35 MG PO SCH (20:29)
[2021-08-26 06:52] VITALS: BP 105/56; PULSE 65; RESP 16; TEMP 97.5
[2021-08-26] MEDS: NICOTINE 14MG/24HR PATCH TRANSDERM SCH (08:08)
[2021-08-26] MEDS: LORATADINE 10 MG TAB PO SCH (08:08)
[2021-08-26] MEDS: OLANZapine 5 MG TAB PO SCH ×3 (08:09→13:56)
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
== END 2021-08-26 14:35 | disposition home or self-care (01) | DRG 885 ==
LOC: EC 03:55 → 3MHU 06:54
PROVIDERS: ADMIT Psychiatry & Neurology Psychiatry; ATTEND Psychiatry & Neurology Psychiatry
DX: F33.2 Major depressive disorder, recurrent severe without psychotic features (principal); F10.239 Alcohol dependence with withdrawal, unspecified; F11.20 Opioid dependence, uncomplicated; R45.851 Suicidal ideations; F10.229 Alcohol dependence with intoxication, unspecified; F17.210 Nicotine dependence, cigarettes, uncomplicated; F41.0 Panic disorder [episodic paroxysmal anxiety]; F41.8 Other specified anxiety disorders; F43.10 Post-traumatic stress disorder, unspecified; F51.04 Psychophysiologic insomnia; F51.05 Insomnia due to other mental disorder; Z62.810 Personal history of physical and sexual abuse in childhood; Z63.9 Problem related to primary support group, unspecified; Z79.899 Other long term (current) drug therapy; Z56.0 Unemployment, unspecified; Z71.6 Tobacco abuse counseling; F17.290 Nicotine dependence, other tobacco product, uncomplicated; Z20.822 Contact with and (suspected) exposure to COVID-19
CPT/HCPCS: 36415; 80048; 80053; 80061; 80143; 80179; 80306; 81003; 81025; 82075; 83036; 84443; 85025; 87635; 99285